=== PATIENT | female | born 1985 | race Caucasian/White ===

== ENCOUNTER 2022-03-11 13:14 | Emergency (ER) | payer OTHER, SELFPAY ==
[2022-03-11 13:49] VITALS: BP 140/85; PULSE 99; RESP 18; TEMP 37.2; O2SAT 99; BMI 30.1
--- NOTE | 2022-03-11 15:20 | ED_ITS ---
HPI - General Adult General Time Seen by Provider: 15:20 Date Seen: 03/11/22 Chief complaint: Abdominal Pain Stated complaint: Abdominal Pain Time Seen by Provider: 03/11/22 15:06 Source: patient History of Present Illness HPI narrative: Erika is a 36 year old female with no past medical history presents emerged department with lower back pain and abdominal pain. Patient states that it about Friday evening, pain is lower lumbar area, paraspinal musculature, no midline tenderness, the pain radiates down the top of her legs to her knees, it is sharp, she also has cramping left lower and right lower quadrant abdominal pain associated with it. She denies any nausea vomiting, she has not had any fevers or chills, she denies any diarrhea, constipation, blood in stool, she denies any urinary complaint. She was seen in [place] urgency room CT abdomen of contrast not show any acute pathology, TA and TV ultrasound showed nothing acute, her labs were reassuring including CBC, BMP, urinalysis urine test. She have a IUD. She had lunch today around noon which included chicken and the once again. Pain is 4/10, has been constant since then. Related Data Previous Rx's Medication Instructions Recorded ketorolac 10 mg tablet 10 mg PO Q6H PRN pain 5 days #20 03/11/22 tabs Allergies Allergy/AdvReac Type Severity Reaction Status Date / Time No Known Drug Allergies Allergy Verified 03/11/22 13:55 Review of Systems Status of ROS: Reports: 10 or more systems reviewed and unremarkable except as noted in History and below Exam Narrative: Exam Narrative: General: No obvious distress sitting comfortably HEENT: Tympanic membranes within normal limits bilateral oropharynx is clear and moist pupils equal round reactive to light Neck: Full range of motion, supple Lungs: clear to auscultation bilaterally Heart: Normal sinus rhythm S1-S2 Abdomen: Mild tenderness to palpation in the right lower and left lower quadrant area, bowel sounds present, abdomen is soft, no rebound or guarding Muscle skeletal: She is tender to palpation the lower paraspinal musculature, no midline tenderness or step-offs, straight leg raise and crossover at 20? negative bilaterally, she has +5 strength lower extremities Neuro: Alert awake oriented x3, gait within normal limits Const: Vital Signs, click to edit/add: Vital Signs - 24 hr 03/11/22 13:49 Temperature 98.9 F Pulse Rate [Pulse Oximeter] 99 Respiratory Rate 18 Blood Pressure [[facility] Upper Arm] 140/85 H Pulse Oximetry 99 Oxygen Delivery Me thod Room Air Course Course Hospital Course: 3:15 PM: AIDET performed. Workup will include IV peripheral, 30 mg IV Toradol for her pain, will reach his including CBC, CRP, CMP, lipase, urinalysis and urine test, reviewed imaging and labs from previous visit. will obtain US Gallbladder and Pelvic ultrasound, will make sure no gallbladder involvement or ovarian pathology. Differential diagnosis include, appendicitis, cholecystitis, hepatitis, pancreatitis, colitis, urolithiasis, PUD, PID, ovarian cyst/torsion, malignancy, muscle skeletal as well as other etiologies Reevaluation(s) Reevaluation #1: Patient was updated on her lab results, no acute findings, US gallbladder ultrasound was Unremarkable, Pelvic ultrasound showed a left 2.5 x 2.2 x 2.3 complex ovarian cyst which may represent a hemorrhagic cyst, follow-up in 6-8 weeks for repeat ultrasound to make sure resolution. Patient was given the above care and did well, she was given an additional 0.5 mg of Dilaudid, pain improved, will add Toradol 10 mg every 6 hours in addition to her Percocet for pain control. She needs to follow up with an sales engineer account manager provider based on her pelvic ultrasound results in the next 6-8 weeks, reasons to return were given. . Time: 18:07 Vital Signs Vital signs: Initial Vital Signs Temperature 98.9 F 03/11/22 13:49 Temperature Source Temporal Artery Scan 03/11/22 13:49 Pulse Rate 99 03/11/22 13:49 Respiratory Rate 18 03/11/22 13:49 Blood Pressure 140/85 H 03/11/22 13:49 Blood Pressure Mean 103 03/11/22 13:49 Blood Pressure Position Supine 03/11/22 13:49 Pulse Oximetry 99 03/11/22 13:49 Oxygen Delivery Method 03/11/22 13:49 Vital Signs Temperature 98.9 F 03/11/22 13:49 Pulse Rate 99 03/11/22 13:49 Respiratory Rate 18 03/11/22 13:49 Blood Pressure 140/85 H 03/11/22 13:49 Pulse Oximetry 99 03/11/22 13:49 Oxygen Delivery Method 03/11/22 13:49 Temperature 98.9 F 03/11/22 13:49 Pulse Rate 99 03/11/22 13:49 Respiratory Rate 18 03/11/22 13:49 Blood Pressure 140/85 H 03/11/22 13:49 Pulse Oximetry 99 03/11/22 13:49 Oxygen Delivery Method 03/11/22 13:49 Medical Decision Making Lab Data Labs: Lab Results 03/11/22 03/11/22 Range/Units 15:50 15:50 WBC 5.15 (4.50-11.00) K/uL RBC 4.76 (4.00-5.20) m/uL Hgb 14.1 (12.0-16.0) gm/dL Hct 42.7 (33.0-51.0) % MCV 90 (80-100) fL MCH 30 (26-34) pg MCHC 33 (32-36) gm/dL RDW Coeff of Gregory 11.7 (11.5-15.5) % Plt Count 180 (140-440) K/uL Neut % (Auto) 65.2 (42.0-72.0) % Lymph % (Auto) 27.6 (20-44) % [place] % (Auto) 6.4 (0.0-11.0) % Eos % (Auto) 0.4 (0.0-7.0) % Baso % (Auto) 0.2 (0.0-3.0) % Neut # (Auto) 3.36 (1.7-7.0) K/uL Lymph # (Auto) 1.42 (0.90-2.90) K/uL [place] # (Auto) 0.30 (0.00-0.90) K/UL Eos # (Auto) 0.02 (0.00-0.50) K/uL Baso # (Auto) 0.01 (0.00-0.30) K/uL Abs Immat Gran (auto) 0.01 (0.00-0.30) K/uL Sodium 138 (135-149) mmol/L Potassium 3.9 (3.6-5.1) mmol/L Chloride 102 (96-114) mmol/L Carbon Dioxide 27 (20-32) mmol/L BUN 14 (5-24) mg/dL Creatinine 0.8 (0.5-1.5) mg/dL Estimated Creat Clear 96.36 Estimated GFR 99 ml/min Glucose 102 (60-115) mg/dL Calcium 9.2 (8.4-10.6) mg/dL Total Bilirubin 0.5 (0.1-1.5) mg/dL AST 26 (12-35) U/L ALT 17 (4-35) U/L Alkaline Phosphatase 70 (40-150) U/L C-Reactive Protein 1.1 H (0.5-1.0) mg/dL Total Protein 7.6 (6.0-8.3) g/dL Albumin 4.7 (3.3-5.0) g/dL Lipase 80 (23-300) U/L Discharge Plan Discharge Clinical Impression: Complex cyst of left ovary, Hemorrhagic cyst of left ovary Patient Disposition: Home, Self-Care Instructions: Ovarian Cyst (ED) Additional Instructions: To take the Percocet 5-325 mg tablets every 4-6 hours in addition to Toradol 10 mg for pain control, to follow up with an sales engineer account manager or Family Medicine provider in the next 6-8 weeks for repeat US. Return if any worsening symptoms. Prescriptions: New ketorolac 10 mg tablet 10 mg PO Q6H PRN (Reason: pain) 5 Days Qty: 20 0RF Stand Alone Forms: [employer] Info Instructions
[2022-03-11 16:02] LABS: Basophils Absolute Auto 0.01 K/uL (0.00-0.30); Basophils Percent Auto 0.2 % (0.0-3.0); Eosinophils Absolute Auto 0.02 K/uL (0.00-0.50); Eosinophils Percent Auto 0.4 % (0.0-7.0); Hematocrit 42.7 % (33.0-51.0); Hemoglobin* 14.1 gm/dL (12.0-16.0); Immature Granulocytes Abs Auto 0.01 K/uL (0.00-0.30); Lymphocytes Absolute Auto 1.42 K/uL (0.90-2.90); Lymphocytes Percent Auto 27.6 % (20-44); Mean Corpuscular HGB Conc 33 gm/dL (32-36); Mean Corpuscular Hemoglobin 30 pg (26-34); Mean Corpuscular Volume 90 fL (80-100); Monocytes Percent Auto 6.4 % (0.0-11.0); Neutrophils Absolute Auto 3.36 K/uL (1.7-7.0); Neutrophils Percent Auto 65.2 % (42.0-72.0); Platelet Count* 180 K/uL (140-440); RDW Coefficient of Variation % 11.7 % (11.5-15.5); Red Blood Count 4.76 m/uL (4.00-5.20); White Blood Count* 5.15 K/uL (4.50-11.00)
[2022-03-11 16:08] LABS: Slide Review Reflex No
[2022-03-11] MEDS: KETOROLAC 30 MG/ML inj IVP (16:16)
[2022-03-11 16:22] LABS: Albumin* 4.7 g/dL (3.3-5.0); Chloride* 102 mmol/L (96-114)
[2022-03-11 16:23] LABS: Potassium* 3.9 mmol/L (3.6-5.1); Sodium* 138 mmol/L (135-149)
[2022-03-11 16:25] LABS: Alkaline Phosphatase* 70 U/L (40-150); Aspartate Amino Transferase* 26 U/L (12-35); Bilirubin Total* 0.5 mg/dL (0.1-1.5); Carbon Dioxide* 27 mmol/L (20-32); Creatinine* 0.8 mg/dL (0.5-1.5); Est. Creatinine Clearance* 96.36; Estimated Glomerular Filt Rate 99 ml/min; Total Protein* 7.6 g/dL (6.0-8.3)
[2022-03-11 16:26] LABS: Alanine Aminotransferase* 17 U/L (4-35); Blood Urea Nitrogen* 14 mg/dL (5-24); Calcium* 9.2 mg/dL (8.4-10.6); Glucose* 102 mg/dL (60-115); Lipase* 80 U/L (23-300)
--- NOTE | 2022-03-11 16:27 | CRLHL7_ITS ---
For Patients: As a result of the Century Cures Act, medical imaging exams and procedure reports are released immediately into your electronic medical record. You may view this report before your referring provider. If you have questions, please contact your health care provider. CLINICAL HISTORY: Abdominal pain FINDINGS: The patient`s liver is of normal size and has uniform echogenicity. There is a normal appearance of the hepatic IVC and proximal abdominal aorta. There is no evidence of ascites. The gallbladder is of normal size and there is no evidence of intraluminal stones or sludge. The gallbladder wall measures 1 mm in thickness. The common bile duct is of normal size and measures 6 mm in diameter at the level of the bernabe hepatis. The pancreas appears normal. There is no evidence of a stone or hydronephrosis within the right kidney. The right kidney measures 11.6 cm in length. IMPRESSION: Unremarkable right upper quadrant ultrasound. Dictated by Nikki Demarco MD @ 03/11/2022 5:59:05 PM (Electronically Signed)
[2022-03-11 16:28] LABS: C Reactive Protein* 1.1 mg/dL (0.5-1.0)
[2022-03-11 16:30] VITALS: BP 130/86; PULSE 84; RESP 18; O2SAT 98
--- NOTE | 2022-03-11 17:00 | US_ITS ---
Patient: CHIQUITA GARDNER Facility:?[facility] Patient ID:?[id number] Site Patient ID:?[id number]. Site :?[id number] Study:?US-Pelvis -03/11/2022 5:29:05 PM Ordering Physician:Britt Powers Final Report: INDICATION: Complex left ovarian cyst.. TECHNIQUE: Ultrasound pelvis transvaginal for better assessment or to better visualize the endometrium. Real-time sonographic images with spectral and color Doppler imaging of the ovaries were obtained. COMPARISON: None. FINDINGS: Uterus: 7.9 x 3.7 x 4.5 cm. Normal echotexture of the myometrium. No masses. Endometrium: Transvaginal imaging was performed to better evaluate the endometrium. IUD is identified within the endometrium, appropriately position. No sign of endometrial mass or fluid. Right ovary measures 3.6 x 2.1 x 2.4 cm and left ovary measures 5.1 x 2.4 x 3.2 cm. Complex cyst is identified in the left ovary measuring 2.5 x 2.2 x 2.3 centimeters. Normal arterial and venous blood flow is demonstrated in both ovaries. Cul-de-sac: No significant free fluid. IMPRESSION: Complex cyst in the left ovary measuring 2.5 x 2.2 x 2.3 centimeters may represent a hemorrhagic cyst. Recommend follow-up ultrasound in 6-8 weeks to ensure resolution. Dictated by Jodi Hernandez MD @ 03/11/2022 6:14:22 PM Signed by:?Jodi Hernandez MD @03/11/2022 6:14:22 PM (Electronic Signature)
[2022-03-11 18:00] VITALS: BP 134/89; PULSE 82; RESP 16; O2SAT 96
[2022-03-11] MEDS: HYDROmorphone 0.5 mg/0.5 ml inj IVP (18:30)
[2022-03-11 19:00] VITALS: BP 128/93; PULSE 78; RESP 14; O2SAT 96
== END 2022-03-11 19:06 | disposition home or self-care (01) ==
PROVIDERS: Emergency Provider Student in an Organized Health Care Education/Training Program
DX: N83.8 Other noninflammatory disorders of ovary, fallopian tube and broad ligament (principal)
CPT/HCPCS: 36415; 76705; 76830; 80053; 83690; 85025; 86140; 93976; 96374; 96375; 99283; 99284; J1170; J1885

== ENCOUNTER 2022-09-12 08:04 | Outpatient (CLI) | payer OTHER, SELFPAY | END 2022-09-12 08:05 | disposition home or self-care (01) | LOC: NFLDREF 18:14 | PROVIDERS: PCP Family Medicine; Referring Provider Family Medicine; Visit Provider Family Medicine | DX: Z13.1 Encounter for screening for diabetes mellitus (principal); Z13.6 Encounter for screening for cardiovascular disorders | CPT/HCPCS: 80061; 82947 ==

== ENCOUNTER 2023-01-29 15:44 | Emergency (ER) | payer OTHER, SELFPAY ==
[2023-01-29 15:54] VITALS: BP 136/92; PULSE 93; RESP 18; TEMP 36.1; O2SAT 98; BMI 29.4
--- NOTE | 2023-01-29 16:05 | XR_ITS ---
Final Report Patient: CHIQUITA GARDNER Facility:?[facility] Patient ID:?[id number] Site Patient ID:?[id number]. Site :?[id number] Study:?XRay Extremity Right FOOT 3V-01/29/2023 4:32:11 PM Ordering Physician:?Montrell Urias Final Report: Indication: Pain with trauma Technique: Three views Comparison: None Findings: No fracture or dislocation. Dorsal forefoot soft tissue swelling. Incidental punctate radiopaque foci in the plantar soft tissues underlying the metatarsophalangeal joints on the lateral view, nonspecific, otherwise a doubtful significance in the acute setting. Differential diagnostic considerations include radiopaque foreign bodies. Impression: Dorsal forefoot soft tissue swelling. Dictated by Norberto Paul MD @ 01/29/2023 5:28:27 PM (Electronic Signature)
--- NOTE | 2023-01-29 16:12 | ED.GENADULT ---
HPI - General Adult General Time Seen by Provider: 16:12 Date Seen: 01/29/23 Chief complaint: Extremity Pain/Injury, Lower Stated complaint: R foot injury Time Seen by Provider: 01/29/23 15:46 Source: patient Mode of arrival: wheelchair Limitations: no limitations History of Present Illness HPI narrative: Patient is a 37-year-old female presented emergency department for right foot pain. She states a very large branch fell on her right foot while she was sitting outside. This happened shortly prior to arrival. She has not been applying any pressure on that foot since this occurred. Denies any ankle pain at this time. Denies any other injuries. Her last tetanus was 6 years ago. Denies any numbness or weakness to the foot. She has never hurt this foot in the past Related Data Home Medications Medication Instructions Recorded Confirmed levonorgestrel 21 mcg/24 hours (8 1 device intrauterine ONCE 09/17/22 09/17/22 yrs) 52 mg intrauterine device (Mirena) Previous Rx's Medication Instructions Recorded sertraline 50 mg tablet 50 mg PO QDAY #30 tabs 09/17/22 oxycodone 5 mg tablet 5 mg PO Q6H PRN pain #8 tabs 01/29/23 Allergies Allergy/AdvReac Type Severity Reaction Status Date / Time shellfish derived Allergy Unknown Verified 09/17/22 08:37 Review of Systems Narrative: Review of systems otherwise negative unless stated in HPI PFSH PFSH Medical History (Updated 01/29/23 @ 17:38 by Adonay Stock, ) Vaginal delivery ?O80 - Encounter for full-term uncomplicated delivery (ICD-10) Routine follow-up ?Z39.2 - Encounter for routine follow-up (ICD-10) care ?Z34.90 - Encounter for supervision of normal , unspecified, unspecified trimester (ICD-10) Depression affecting , ?F53.0 - depression (ICD-10) Encounter for Nexplanon removal ?Z30.46 - Encounter for surveillance of implantable subdermal contraceptive (ICD-10) Encounter for insertion of mirena IUD ?Z30.430 - Encounter for insertion of intrauterine contraceptive device (ICD-10) Exercise-induced asthma ?J45.990 - Exercise induced bronchospasm (ICD-10) Surgical History (Updated 09/11/22 @ 16:20 by Agnes Randle) History of tonsillectomy and adenoidectomy ?Z90.89 - Acquired absence of other organs (ICD-10) History of wisdom tooth extraction ?K08.409 - Partial loss of teeth, unspecified cause, unspecified class (ICD-10) Family History (Updated 09/11/22 @ 16:22 by Agnes Randle) Maternal Grandmother Breast cancer Father Cancer Diabetes Social History (Updated 09/11/22 @ 16:23 by Agnes Randle) Narrative: 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 , 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 Moist mucous membranes. MSK: Notable swelling to the distal portion of the right foot on the medial aspect localized roughly around the bases of the 1st through 3rd toes. Notable tenderness to palpation. Cap refills less than 2 seconds bilaterally Skin: Warm, Dry. Multiple superficial abrasions to the right toes and medial distal portion of the foot Neuro: Normal Muscle tone, No focal neurological deficits. Psych: Awake, Alert, & Oriented x3. Appropriate mood and affect. Const: Vital Signs, click to edit/add: Vital Signs - 24 hr 01/29/23 15:54 Temperature 97.0 F L Pulse Rate [Right Pulse Oximeter] 93 Respiratory Rate 18 Blood Pressure [Ri ght Upper Arm] 136/92 H Pulse Oximetry 98 Oxygen Delivery Me thod Room Air Course Vital Signs Vital signs: Initial Vital Signs Temperature 97.0 F L 01/29/23 15:54 Temperature Source Temporal Artery Scan 01/29/23 15:54 Pulse Rate 93 01/29/23 15:54 Respiratory Rate 18 01/29/23 15:54 Blood Pressure 136/92 H 01/29/23 15:54 Blood Pressure Mean 106 H 01/29/23 15:54 Blood Pressure Position Sitting 01/29/23 15:54 Pulse Oximetry 98 01/29/23 15:54 Oxygen Delivery Method Room Air 01/29/23 15:54 Vital Signs Temperature 97.0 F L 01/29/23 15:54 Pulse Rate 93 01/29/23 15:54 Respiratory Rate 18 01/29/23 15:54 Blood Pressure 136/92 H 01/29/23 15:54 Pulse Oximetry 98 01/29/23 15:54 Oxygen Delivery Method Room Air 01/29/23 15:54 Temperature 97.0 F L 01/29/23 15:54 Pulse Rate 93 01/29/23 15:54 Respiratory Rate 18 01/29/23 15:54 Blood Pressure 136/92 H 01/29/23 15:54 Pulse Oximetry 98 01/29/23 15:54 Oxygen Delivery Method Room Air 01/29/23 15:54 Medical Decision Making MDM Narrative Medical decision making narrative: Patient is a 37-year-old female presenting worse department after a tree branch fell about 20 to 25 ft on her foot. They state is of relatively large branch. There is notable swelling to her right foot with some abrasions. She is up-to-date on tetanus shot. She is given morphine and Toradol for pain. After this an x-ray was done which showed no acute fractures. She says the pain is much better now with the medication. She will be discharged home with pain medication she is agreeable to this plan. No other imaging is necessary at this time. Imaging Data Right foot x-ray: Radiologist's impression: Indication: Pain with trauma Technique: Three views Comparison: None Findings: No fracture or dislocation. Dorsal forefoot soft tissue swelling. Incidental punctate radiopaque foci in the plantar soft tissues underlying the metatarsophalangeal joints on the lateral view, nonspecific, otherwise a doubtful significance in the acute setting. Differential diagnostic considerations include radiopaque foreign bodies. Impression: Dorsal forefoot soft tissue swelling. Dictated by Norberto Paul MD @ 01/29/2023 5:28:27 PM Discharge Plan Discharge Clinical Impression: Contusion of foot Qualifiers: Encounter type: initial encounter Laterality: right Qualified Code(s): S90.31XA - Contusion of right foot, initial encounter Patient Disposition: Home, Self-Care Condition: Stable Instructions: Foot Contusion (ED) Additional Instructions: X-ray shows no acute fractures. Use Tylenol in ibuprofen for pain before he try using the oxycodone. Return for new or worsening symptoms. Use the crutches and Minh wrap as needed for comfort. Follow-up with the primary care provider. It may be a couple weeks before symptoms fully resolve Prescriptions: New oxycodone 5 mg tablet 5 mg PO Q6H PRN (Reason: pain) Qty: 8 0RF No Action Mirena 21 mcg/24 hours (8 yrs) 52 mg intrauterine device 1 device intrauterine ONCE Rx Instructions: as a single dose sertraline 50 mg tablet 50 mg PO QDAY Qty: 30 1RF Follow Up/Referrals: Brant Shelton MD [Primary Care Provider] - Stand Alone Forms: [employer] Info Instructions
[2023-01-29] MEDS: MORPHINE 4 MG/ML INJ IM (16:15)
[2023-01-29] MEDS: KETOROLAC 30 MG/ML inj IM (16:15)
--- NOTE | 2023-01-29 17:55 | ED.NURSE ---
Applied TEZ wrap prior to discharge to help with swelling.
== END 2023-01-29 17:57 | disposition home or self-care (01) ==
PROVIDERS: Emergency Provider Student in an Organized Health Care Education/Training Program; PCP Family Medicine
DX: S90.31XA Contusion of right foot, initial encounter (principal); W20.8XXA Other cause of strike by thrown, projected or falling object, initial encounter
CPT/HCPCS: 73630; 96372; 99282; 99284; J1885; J2270

== ENCOUNTER 2024-12-02 10:03 | Outpatient (CLI) | payer OTHER, SELFPAY | END 2024-12-02 10:04 | disposition home or self-care (01) | PROVIDERS: PCP Family Medicine; Visit Provider Family Medicine | DX: G62.9 Polyneuropathy, unspecified (principal); R20.2 Paresthesia of skin; D49.2 Neoplasm of unspecified behavior of bone, soft tissue, and skin; E66.9 Obesity, unspecified; Z68.32 Body mass index [BMI] 32.0-32.9, adult | CPT/HCPCS: 80053; 80061; 82306; 82607; 82728; 84443 ==